=== PATIENT | female | born 1970 | race Caucasian/White ===

== ENCOUNTER 2018-04-07 07:58 | Outpatient (RCR) | payer OTHER, SELFPAY ==
--- NOTE | 2018-04-07 16:20 | PT.OIE ---
Current Diagnoses Stiffness of unspecified hip, not elsewhere classified (04/07/18) Stress incontinence (female) (male) (04/07/18) Provider Visit Care Team Role Provider Type Vahe Beckwith MD Primary Care Provider Non-Staff Specialty: Medical Address: [address] [place], [address] Email: Irasema Patel MD Attending Provider Physician Specialty: COMMERCIAL LITIGATION ASSOCIATE Address: [address] [place] [address], [id number] Email: [email or web address] Physical Therapy Initial Evaluation PT-OP-A Visit Information Start: 03/31/18 16:08 Freq: Status: Active Protocol: Document 04/07/18 08:16 LRN (Rec: 04/07/18 08:31 LRN [id number]) Out-Patient Physical Therapy Visit Information Visit Information Visit Type Initial Evaluation Visit Start Time 08:16 Visit Stop Time 09:07 Total Visit Minutes 51 Visit Number 1 Number of SPECIAL WEAPONS AND TACTICS OFFICER Visits 0 Evaluation Information Evaluation Date 04/07/18 Precautions Precautions Depression PT-OP-B Current Condition Start: 03/31/18 16:08 Freq: Status: Active Protocol: Document 04/07/18 08:16 LRN (Rec: 04/07/18 08:31 LRN [id number]) Current Condition History of Current Condition Onset Date 2 yrs ago. History of Current Condition Started exercising and noticed having to void immediately afterwards even though she went prior to exercise. Sometimes she doesn't make. States dancing sometimes leaks and at son's sports basketball game, jumping causes leakage. Prior Treatments and Tests Exam by MD Bladder scan showed bladder retention was not a problem. Treatment Goals Patient/Caregiver Goals Pt goal Prior Functional Status Baseline Function- ADL's Independent Baseline Function- Mobility Independent Baseline Function- Work/School Nurse Baseline Function- Recreation/Hobbies 2yrs ago was sedentary and not active Coughed and had to cross legs. Current Functional Impairments (Reported) Functional Limitations- Work/School Urinary leakage with Coughing. Functional Limitations- Recreation/ Urinary leakage with jumping, Hobbies dancing, standing in the presence of urgency. 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 Exercise 5-6 days a week at home. Beach body workout she started a couple years. PT-OP-C Subjective Start: 03/31/18 16:08 Freq: Status: Active Protocol: Document 04/07/18 08:16 LRN (Rec: 04/07/18 08:31 LRN [id number]) OP-PT Pain Assessment Comments Pain Comments Denies pain. PT-OP-I Pelvic Floor Start: 03/31/18 16:08 Freq: Status: Active Protocol: Document 04/07/18 08:16 LRN (Rec: 04/07/18 16:02 LRN [id number]) Pelvic Floor Assessment Urine Pelvic Floor Surgery No Urinary Symptoms Urge Sensation Prolapse Falling Out Feeling/Heavy Leakage Size Large Leakage Cause Cough Exercise Urge Voiding Frequency 4x/day Nocturia 1x/night Pelvic Clock Pelvic Clock 12-3 Atrophy Pelvic Clock 3-6 Atrophy Pelvic Clock 6-9 Atrophy Pelvic Clock 9-12 Atrophy Prolapse Cystocele Grade 3 Rectocele Grade 3 Perineal Descent Bearing Present Comments Pelvic Floor Comments Dry skin of PF. Redness and skin irritation of PF. PT-OP-K Range of Motion Start: 03/31/18 16:08 Freq: Status: Active Protocol: Document 04/07/18 08:16 LRN (Rec: 04/07/18 16:02 LRN [id number]) Lumbar Spine Range of Motion Lumbar Spine Active Degrees Testing Position Standing Flexion 70 Extension 25 Comments Lateral flexion decreased on the left by 10%. Hip Goniometric Range of Motion Hip Measured in Degrees Right Passive Testing Position Supine Left Passive Testing Position Supine PT-OP-M Strength Start: 03/31/18 16:08 Freq: Status: Active Protocol: Document 04/07/18 08:16 LRN (Rec: 04/07/18 16:02 LRN [id number]) Trunk Strength Trunk Manual Muscle Testing Core Stabilization Pt not able to maintain core stability with testing of hip flexion, bilaterally. Hip Strength Hip Manual Muscle Testing Right Flexion (L2) 5 Normal Left Flexion (L2) 5 Normal PT-OP-Q Treatments Start: 03/31/18 16:08 Freq: Status: Active Protocol: Document 04/07/18 08:16 LRN (Rec: 04/07/18 16:02 LRN [id number]) Self-Care/Home Management Treatment Education Patient Education Home Exercise Program Other Education Discussed and instructed pt in completing Bladder Diary. Activities Self-Care/Home Management Activities Pt issued and reviewed HEP: Kegel ex's. PT-OP-T Assessment and Plan Start: 03/31/18 16:08 Freq: Status: Active Protocol: Document 04/07/18 08:16 LRN (Rec: 04/07/18 08:31 LRN [id number]) Physical Therapy Assessment Rehab Potential Rehabilitation Potential Good Evaluation Complexity Number of Personal Factors/Comorbidities 1-2 Number of Body Systems Impaired 3 Clinical Presentation at Evaluation Evolving Impairments Impairments Posture ROM Strength Other Impairments Urinary incontinence with stress and urge. Other Concerns Age Related Concerns Impact of condition on work. Barriers to Rehabilitation Nursing job, pelvic obliquity, history of depression. Goals Five Impairment Decreased PF endurance, able to hold 3 sec's before loss of strength. Telephony Engineer Goal (LTG) Pt will be able to hold a PF contraction of strength no less than 8.0 mV's for 10 sec' s prior to fatigue. LTG Duration 08/05/18 Four Impairment Urgency always bothers her and it is usually severe. Short Term Goal (STG) Pt will be educated in urge deference self care technique. STG Duration 06/05/18 Telephony Engineer Goal (LTG) Urgency will be a bother occasionally per PUF Questionnaire. LTG Duration 08/05/18 Three Impairment Urinary leakage with cough, exercise, jumping, dance. Short Term Goal (STG) Pt will be educated in a HEP of aggravator ex's to strengthen her PF. STG Duration 06/05/18 Telephony Engineer Goal (LTG) Pt will be able to dance & jump without urinary leakage if previously voided, and pt will be able to cough without urinary leakage. LTG Duration 08/05/18 Two Impairment Poor awareness of performing an isolated PF contraction and poor strength Short Term Goal (STG) Pt will be able to identify a PF contraction with use of a PF E-stim unit, and Pt will be educated in performing an isolated contraction. STG Duration 06/05/18 Telephony Engineer Goal (LTG) Pt will be able to perform an isolated PF contraction of strength no less than 8.0 mV's . LTG Duration 06/21/19 One Impairment Lacks self group home exercise program [facility] Goal (LTG) Pt will be independent in a self care HEP. LTG Duration 08/05/18 Assessment Summary Assessment Pt presents to therapy with stress and some indications of urge urinary incontinence. She has a visible cystocele and rectocele and has palpable weakness of her PF. She has asymmetry of her pelvis and mobility asymmetry of the hips with weakness of the core. She does not perform an isolated PF contraction, but uses her gluteal and abdominal muscles to facilitate a PF contraction. The pt will benefit from skilled physical therapy for postural corrections, PF/core/pelvic strengthening, mixed incontinence rehab and education in self care. Due to the pt's work schedule and scheduling difficulties, the pt is not able to return until 05/2018; therefore her rehabilitation duration is expected to be 8 weeks from her first visit in May. Physical Therapy Plan Frequency and Duration Frequency of Treatment 1x/Week Plan of Care Start Date 04/07/18 Plan of Care End Date 08/05/18 Therapeutic Interventions Therapeutic Interventions Home Exercise Program Joint Mobilizations Manual Therapy Patient/Caregiver Education Self-Care/Home Management Soft Tissue Mobilization Therapeutic Activities Therapeutic Exercises Modalities Cold Pack/Ice Massage Electric Stimulation Next Visit Focus/Plan Next Note Type Treatment Note Next Visit Plan Review Bladder Diary and Kegel ex. Assess hip ext ROM/ strength and recheck pelvic obliquity. EMG assessment of PF strength and start PF strengthening deep breathing. Self care re: fluid intake and current ex program. Rehab for mixed incontinence and bladder retraining (for full emptying), core & pelvic stabilization.
--- NOTE | 2018-08-28 14:47 | PT.OPDS ---
Current Diagnoses Stiffness of unspecified hip, not elsewhere classified (04/07/18) Stress incontinence (female) (male) (04/07/18) Provider Visit Care Team Role Provider Type Vahe Beckwith MD Primary Care Provider Non-Staff Specialty: Medical Address: [facility] [place], [address] Email: Irasema Patel MD Attending Provider Physician Specialty: SENIOR PHP SOFTWARE DEVELOPER Address: [address] [place] [address], [address] Email: [email or web address] Visit Number Visit Number 1 Discharge Summary PT-OP-B Current Condition Start: 03/31/18 16:08 Freq: Status: Active Protocol: Document 04/07/18 08:16 LRN (Rec: 04/07/18 08:31 LRN [id number]) Current Condition History of Current Condition Onset Date 2 yrs ago. History of Current Condition Started exercising and noticed having to void immediately afterwards even though she went prior to exercise. Sometimes she doesn't make. States dancing sometimes leaks and at son's sports basketball game, jumping causes leakage. Prior Treatments and Tests Exam by MD Bladder scan showed bladder retention was not a problem. Treatment Goals Patient/Caregiver Goals Pt goal Prior Functional Status Baseline Function- ADL's Independent Baseline Function- Mobility Independent Baseline Function- Work/School Nurse Baseline Function- Recreation/Hobbies 2yrs ago was sedentary and not active Coughed and had to cross legs. Current Functional Impairments (Reported) Functional Limitations- Work/School Urinary leakage with Coughing. Functional Limitations- Recreation/ Urinary leakage with jumping, Hobbies dancing, standing in the presence of urgency. 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 Exercise 5-6 days a week at home. Beach body workout she started a couple years. Physical Therapy Assessment Goals Five Impairment Decreased PF endurance, able to hold 3 sec's before loss of strength. Medical Terminologist Goal (LTG) Pt will be able to hold a PF contraction of strength no less than 8.0 mV's for 10 sec' s prior to fatigue. LTG Duration 08/05/18 Four Impairment Urgency always bothers her and it is usually severe. Short Term Goal (STG) Pt will be educated in urge deference self care technique. STG Duration 06/05/18 Medical Terminologist Goal (LTG) Urgency will be a bother occasionally per PUF Questionnaire. LTG Duration 08/05/18 Three Impairment Urinary leakage with cough, exercise, jumping, dance. Short Term Goal (STG) Pt will be educated in a HEP of aggravator ex's to strengthen her PF. STG Duration 06/05/18 Medical Terminologist Goal (LTG) Pt will be able to dance & jump without urinary leakage if previously voided, and pt will be able to cough without urinary leakage. LTG Duration 08/05/18 Two Impairment Poor awareness of performing an isolated PF contraction and poor strength Short Term Goal (STG) Pt will be able to identify a PF contraction with use of a PF E-stim unit, and Pt will be educated in performing an isolated contraction. STG Duration 06/05/18 Custodial Goal (LTG) Pt will be able to perform an isolated PF contraction of strength no less than 8.0 mV's . LTG Duration 08/05/18 One Impairment Lacks self nursing home exercise program Medical Terminologist Goal (LTG) Pt will be independent in a self care HEP. LTG Duration 08/05/18 Assessment Summary Assessment Pt was seen only for her initial evaluation and did not return for follow up care; therefore the pt is being discharged from therapy due to lack of attendance. Physical Therapy Plan Discharge Physical Therapy Discharge Reasons No Longer Attending PT Discharge Comments Pt seen only for her initial evaluation. Pt being discharged for lack of attendance.
== END 2018-09-01 14:21 | disposition home or self-care (01) ==
LOC: PHYS 07:58
PROVIDERS: PCP Family Medicine; Visit Provider Specialist
DX: N39.3 Stress incontinence (female) (male) (principal); M25.659 Stiffness of unspecified hip, not elsewhere classified
CPT/HCPCS: 97161; 97535

== ENCOUNTER 2021-07-22 13:45 | Outpatient (RCR) | payer OTHER, SELFPAY ==
--- NOTE | 2021-07-03 13:48 | PT.OIE ---
Current Diagnoses Other female genital prolapse (07/03/21) Visit Care Team Role Provider Type Vahe Beckwith MD Attending Provider Non-Staff Family Provider Primary Care Provider Referring Provider Specialty: Medical Address: [address] [place] [address], [id number] Email: Physical Therapy Initial Evaluation PT-OP-A Visit Information Start: 07/01/21 12:55 Freq: Status: Active Protocol: Document 07/03/21 08:15 AMB (Rec: 07/03/21 13:44 AMB [id number]) Out-Patient Physical Therapy Visit Information Visit Information Visit Type Initial Evaluation Visit Start Time 08:15 Visit Stop Time 09:00 Total Visit Minutes 45 Visit Number 1 PT-OP-B Current Condition Start: 07/01/21 12:55 Freq: Status: Active Protocol: Document 07/03/21 08:15 AMB (Rec: 07/03/21 13:44 AMB [id number]) Current Condition History of Current Condition Onset Date 10+ years Current Complaints stress urinary incontinence History of Current Condition Saray returns to physical therapy for her 3rd PT eval. She has been evaluated twice before, but was unable to return due to covid shutdown/ loss of health insurance. In that times her symptoms have worsened, so that now the stress incontinence is with sit to stand, laughing, coughing, sneezing, running and jumping. She has not tried to do much pelvic floor strengthening yet. Personal Factors Other Personal Factors That May Effect Pt tends to drink a lot of Therapy/Recovery coffee/alcohol. Hx gastric sleeve in 2012 was previously more overweight, but has gained 20 pounds recently. PT-OP-I Pelvic Floor Start: 07/01/21 12:55 Freq: Status: Active Protocol: Document 07/03/21 08:15 AMB (Rec: 07/03/21 13:44 AMB [id number]) Pelvic Floor Assessment Urine Urinary Symptoms Urge Sensation Leakage Size Small Leakage Cause Cough,Exercise,Lifting,Sneeze, Urge Leaks Per Day 3/week Nocturia 2 SEMG (uV) Baseline 1 Quick Contraction 13 10 Second Contraction 6 Recruitment Pattern Fair Relaxation Good Holding Fair Stability of Hold Fair SEMG Stability of Rest Good Comments Pelvic Floor Comments Pt had poor levator lift at last visit, difficulty not holding her breath, focused on relaxing abdominals and breathing while christian pelvic floor PT-OP-T Assessment and Plan Start: 07/01/21 12:55 Freq: Status: Active Protocol: Document 07/03/21 08:15 AMB (Rec: 07/03/21 13:44 AMB [id number]) Physical Therapy Assessment Rehab Potential Rehabilitation Potential Good Evaluation Complexity Number of Personal Factors/Comorbidities 1-2 Number of Body Systems Impaired 1-2 Clinical Presentation at Evaluation Stable Impairments Impairments Functional Activities,Strength Goals Two Impairment Pelvic floor strength Short Term Goal (STG) Saray will contract her pelvic floor muscles while moving from sit to stand. STG Duration 4 weeks Mcfp Goal (LTG) Saray will contract her pelvic floor muscles for 10 seconds without holding her breath or compensating with her abdominals. LTG Duration 8 weeks One Impairment Continence Short Term Goal (STG) Saray will move from sit to stand without leaking urine. STG Duration 4 weeks Mcfp Goal (LTG) Saray will cough without leaking urine. LTG Duration 8 weeks Assessment Summary Assessment Saray attends physical therapy with progressively worsening stress urinary incontinence. She does have pelvic floor weakness, and has not really been working on strengthening. She will benefit from physical therapy for strengthening and behavior changes to reduce her stress urinary incontinence symptoms. Physical Therapy Plan Frequency and Duration Frequency of Treatment 1x/Week Duration of Treatment 8 weeks Plan of Care Start Date 07/03/21 Plan of Care End Date 09/01/21 Therapeutic Interventions Therapeutic Interventions Home Exercise Program,Manual Therapy,Neuromuscular Re- education,Self-Care/Home Management,Therapeutic Activities,Therapeutic Exercises Modalities Biofeedback,Cold Pack/Ice Massage,Electric Stimulation, Hot Packs Next Visit Focus/Plan Next Note Type Treatment Note
--- NOTE | 2021-07-03 13:48 | PT.OPPOC ---
Physical, Occupational & Speech Therapy At [facility] Current Diagnoses Other female genital prolapse (07/03/21) Visit Care Team Role Provider Type Vahe Beckwith MD Attending Provider Non-Staff Family Provider Primary Care Provider Referring Provider Specialty: Medical Address: [address] [place] [address], [address] Email: Plan Of Care PT-OP-T Assessment and Plan Start: 07/01/21 12:55 Freq: Status: Active Protocol: Document 07/03/21 08:15 AMB (Rec: 07/03/21 13:44 AMB [id number]) Physical Therapy Assessment Rehab Potential Rehabilitation Potential Good Evaluation Complexity Number of Personal Factors/Comorbidities 1-2 Number of Body Systems Impaired 1-2 Clinical Presentation at Evaluation Stable Impairments Impairments Functional Activities,Strength Goals Two Impairment Pelvic floor strength Short Term Goal (STG) Saray will contract her pelvic floor muscles while moving from sit to stand. STG Duration 4 weeks Custodial Goal (LTG) Saray will contract her pelvic floor muscles for 10 seconds without holding her breath or compensating with her abdominals. LTG Duration 8 weeks One Impairment Continence Short Term Goal (STG) Saray will move from sit to stand without leaking urine. STG Duration 4 weeks Custodial Goal (LTG) Saray will cough without leaking urine. LTG Duration 8 weeks Assessment Summary Assessment Saray attends physical therapy with progressively worsening stress urinary incontinence. She does have pelvic floor weakness, and has not really been working on strengthening. She will benefit from physical therapy for strengthening and behavior changes to reduce her stress urinary incontinence symptoms. Physical Therapy Plan Frequency and Duration Frequency of Treatment 1x/Week Duration of Treatment 8 weeks Plan of Care Start Date 07/03/21 Plan of Care End Date 09/01/21 Therapeutic Interventions Therapeutic Interventions Home Exercise Program,Manual Therapy,Neuromuscular Re- education,Self-Care/Home Management,Therapeutic Activities,Therapeutic Exercises Modalities Biofeedback,Cold Pack/Ice Massage,Electric Stimulation, Hot Packs Next Visit Focus/Plan Next Note Type Treatment Note Plan of Care Dates Plan of Care Start Date 07/03/21 Plan of Care End Date 09/01/21 Electronically Signed by: Aga Hollis, PT 07/03/21 1348 If you are in agreement with this Plan of Care, please return a signed and dated copy. I have reviewed this Plan of Care and certify that the skilled therapy services above are required to meet the patient?s needs. Physician Signature Date Printed Name and Credentials Clinical Instructor Signature Printed Name and Credentials
--- NOTE | 2021-07-18 14:43 | PT.OTN ---
Current Diagnoses Other female genital prolapse (07/18/21) Physical Therapy Treatment Note PT-OP-A Visit Information Start: 07/01/21 12:55 Freq: Status: Active Protocol: Document 07/18/21 13:43 AMB (Rec: 07/18/21 14:43 AMB [id number]) Out-Patient Physical Therapy Visit Information Visit Information Visit Type Treatment Note Visit Start Time 13:45 Visit Stop Time 14:30 Total Visit Minutes 45 Visit Number 2 PT-OP-B Current Condition Start: 07/01/21 12:55 Freq: Status: Active Protocol: Document 07/03/21 08:15 AMB (Rec: 07/03/21 13:44 AMB [id number]) Current Condition History of Current Condition Onset Date 10+ years Current Complaints stress urinary incontinence History of Current Condition Saray returns to physical therapy for her 3rd PT eval. She has been evaluated twice before, but was unable to return due to covid shutdown/ loss of health insurance. In that times her symptoms have worsened, so that now the stress incontinence is with sit to stand, laughing, coughing, sneezing, running and jumping. She has not tried to do much pelvic floor strengthening yet. Personal Factors Other Personal Factors That May Effect Pt tends to drink a lot of Therapy/Recovery coffee/alcohol. Hx gastric sleeve in 2013 was previously more overweight, but has gained 20 pounds recently. PT-OP-C Subjective Start: 07/01/21 12:55 Freq: Status: Active Protocol: Document 07/18/21 13:43 AMB (Rec: 07/18/21 14:43 AMB [id number]) OP-PT Subjective Patient Comments Patient Comments Saray is doing well, challenged by supine exercises- hard to find the time, standing or seated would be easier to fit into day. PT-OP-I Pelvic Floor Start: 07/01/21 12:55 Freq: Status: Active Protocol: Document 07/03/21 08:15 AMB (Rec: 07/03/21 13:44 AMB [id number]) Pelvic Floor Assessment Urine Urinary Symptoms Urge Sensation Leakage Size Small Leakage Cause Cough,Exercise,Lifting,Sneeze, Urge Leaks Per Day 3/week Nocturia 2 SEMG (uV) Baseline 1 Quick Contraction 13 10 Second Contraction 6 Recruitment Pattern Fair Relaxation Good Holding Fair Stability of Hold Fair SEMG Stability of Rest Good Comments Pelvic Floor Comments Pt had poor levator lift at last visit, difficulty not holding her breath, focused on relaxing abdominals and breathing while christian pelvic floor PT-OP-Q Treatments Start: 07/01/21 12:55 Freq: Status: Active Protocol: Document 07/18/21 13:43 AMB (Rec: 07/18/21 14:43 AMB [id number]) Therapeutic Exercises Supine Exercises roll in Reps/Minutes 2x10 Comments focus on breath Other Exercises quick flicks/long holds Other Exercise Name seated, quadruped, standing Comments with focus on levator lift, breathing Neuro Re-Education Treatment Other Activities sEMG Details hooklying Comments long holds, and with roll in PT-OP-T Assessment and Plan Start: 07/01/21 12:55 Freq: Status: Active Protocol: Document 07/18/21 13:43 AMB (Rec: 07/18/21 14:43 AMB [id number]) Physical Therapy Assessment Goals Two Impairment Pelvic floor strength Short Term Goal (STG) Saray will contract her pelvic floor muscles while moving from sit to stand. STG Duration 4 weeks Mcc Goal (LTG) Saray will contract her pelvic floor muscles for 10 seconds without holding her breath or compensating with her abdominals. LTG Duration 8 weeks One Impairment Continence Short Term Goal (STG) Saray will move from sit to stand without leaking urine. STG Duration 4 weeks Plaque Maker Goal (LTG) Saray will cough without leaking urine. LTG Duration 8 weeks Assessment Summary Assessment Pt felt better contraction with sensor inserted. Improved muscle activation today- avg 9. Better awareness of breath. Encouraged to contract pelvic floor when coughing/moving from sit to stand. Physical Therapy Plan Next Visit Focus/Plan Next Note Type Treatment Note Next Visit Plan Consider roll in roll out HEP, consider standing vs supine
--- NOTE | 2021-07-22 16:00 | PT.OTN ---
Current Diagnoses Other female genital prolapse (07/22/21) Physical Therapy Treatment Note PT-OP-A Visit Information Start: 07/01/21 12:55 Freq: Status: Active Protocol: Document 07/22/21 14:15 AMB (Rec: 07/22/21 14:30 AMB [id number]) Out-Patient Physical Therapy Visit Information Visit Information Visit Type Treatment Note Visit Start Time 13:45 Visit Stop Time 14:30 Total Visit Minutes 45 Visit Number 3 PT-OP-B Current Condition Start: 07/01/21 12:55 Freq: Status: Active Protocol: Document 07/03/21 08:15 AMB (Rec: 07/03/21 13:44 AMB [id number]) Current Condition History of Current Condition Onset Date 10+ years Current Complaints stress urinary incontinence History of Current Condition Saray returns to physical therapy for her 3rd PT eval. She has been evaluated twice before, but was unable to return due to covid shutdown/ loss of health insurance. In that times her symptoms have worsened, so that now the stress incontinence is with sit to stand, laughing, coughing, sneezing, running and jumping. She has not tried to do much pelvic floor strengthening yet. Personal Factors Other Personal Factors That May Effect Pt tends to drink a lot of Therapy/Recovery coffee/alcohol. Hx gastric sleeve in 2013 was previously more overweight, but has gained 20 pounds recently. PT-OP-C Subjective Start: 07/01/21 12:55 Freq: Status: Active Protocol: Document 07/18/21 13:43 AMB (Rec: 07/18/21 14:43 AMB [id number]) OP-PT Subjective Patient Comments Patient Comments Saray is doing well, challenged by supine exercises- hard to find the time, standing or seated would be easier to fit into day. PT-OP-I Pelvic Floor Start: 07/01/21 12:55 Freq: Status: Active Protocol: Document 07/03/21 08:15 AMB (Rec: 07/03/21 13:44 AMB [id number]) Pelvic Floor Assessment Urine Urinary Symptoms Urge Sensation Leakage Size Small Leakage Cause Cough,Exercise,Lifting,Sneeze, Urge Leaks Per Day 3/week Nocturia 2 SEMG (uV) Baseline 1 Quick Contraction 13 10 Second Contraction 6 Recruitment Pattern Fair Relaxation Good Holding Fair Stability of Hold Fair SEMG Stability of Rest Good Comments Pelvic Floor Comments Pt had poor levator lift at last visit, difficulty not holding her breath, focused on relaxing abdominals and breathing while christian pelvic floor PT-OP-Q Treatments Start: 07/01/21 12:55 Freq: Status: Active Protocol: Document 07/22/21 13:45 AMB (Rec: 07/24/21 12:55 AMB [id number]) Therapeutic Exercises Supine Exercises roll out Reps/Minutes 2x10 roll in Reps/Minutes 2x10 Comments focus on breath Standing Exercises 1 Standing Exercise Name sit to stand with pelvic floor Reps/Minutes 2x10 Other Exercises quick flicks/long holds Other Exercise Name seated, quadruped, standing Comments with focus on levator lift, breathing PT-OP-T Assessment and Plan Start: 07/01/21 12:55 Freq: Status: Active Protocol: Document 07/22/21 13:45 AMB (Rec: 07/24/21 12:55 AMB [id number]) Physical Therapy Assessment Goals Two Impairment Pelvic floor strength Short Term Goal (STG) Saray will contract her pelvic floor muscles while moving from sit to stand. STG Duration 4 weeks Mcc Goal (LTG) Saray will contract her pelvic floor muscles for 10 seconds without holding her breath or compensating with her abdominals. LTG Duration 8 weeks One Impairment Continence Short Term Goal (STG) Saray will move from sit to stand without leaking urine. STG Duration 4 weeks Mcc Goal (LTG) Saray will cough without leaking urine. LTG Duration 8 weeks Assessment Summary Assessment Reinforced that if the pt can feel a contraction and then feel a relaxation she is doing well. Try to add in movement as tolerated, although this i challenging. Physical Therapy Plan Next Visit Focus/Plan Next Note Type Treatment Note
--- NOTE | 2021-09-04 15:43 | PT.OPDS ---
Current Diagnoses Other female genital prolapse (07/22/21) Visit Care Team Role Provider Type Vahe Beckwith MD Attending Provider Non-Staff Family Provider Primary Care Provider Referring Provider Specialty: Medical Address: [address] [place] [address], [place], [address] Email: Visit Number Visit Number 3 Discharge Summary PT-OP-B Current Condition Start: 07/01/21 12:55 Freq: Status: Active Protocol: Document 07/03/21 08:15 AMB (Rec: 07/03/21 13:44 AMB [id number]) Current Condition History of Current Condition Onset Date 10+ years Current Complaints stress urinary incontinence History of Current Condition Saray returns to physical therapy for her 3rd PT eval. She has been evaluated twice before, but was unable to return due to covid shutdown/ loss of health insurance. In that times her symptoms have worsened, so that now the stress incontinence is with sit to stand, laughing, coughing, sneezing, running and jumping. She has not tried to do much pelvic floor strengthening yet. Personal Factors Other Personal Factors That May Effect Pt tends to drink a lot of Therapy/Recovery coffee/alcohol. Hx gastric sleeve in 2013 was previously more overweight, but has gained 20 pounds recently. PT-OP-C Subjective Start: 07/01/21 12:55 Freq: Status: Active Protocol: Document 07/18/21 13:43 AMB (Rec: 07/18/21 14:43 AMB [id number]) OP-PT Subjective Patient Comments Patient Comments Saray is doing well, challenged by supine exercises- hard to find the time, standing or seated would be easier to fit into day. PT-OP-I Pelvic Floor Start: 07/01/21 12:55 Freq: Status: Active Protocol: Document 07/03/21 08:15 AMB (Rec: 07/03/21 13:44 AMB [id number]) Pelvic Floor Assessment Urine Urinary Symptoms Urge Sensation Leakage Size Small Leakage Cause Cough,Exercise,Lifting,Sneeze, Urge Leaks Per Day 3/week Nocturia 2 SEMG (uV) Baseline 1 Quick Contraction 13 10 Second Contraction 6 Recruitment Pattern Fair Relaxation Good Holding Fair Stability of Hold Fair SEMG Stability of Rest Good Comments Pelvic Floor Comments Pt had poor levator lift at last visit, difficulty not holding her breath, focused on relaxing abdominals and breathing while christian pelvic floor PT-OP-T Assessment and Plan Start: 07/01/21 12:55 Freq: Status: Active Protocol: Document 09/04/21 15:42 AMB (Rec: 09/04/21 15:43 AMB [id number]) Physical Therapy Assessment Goals Two Impairment Pelvic floor strength Short Term Goal (STG) Saray will contract her pelvic floor muscles while moving from sit to stand. STG Duration 4 weeks Cell T[employer]per Goal (LTG) Saray will contract her pelvic floor muscles for 10 seconds without holding her breath or compensating with her abdominals. LTG Duration 8 weeks One Impairment Continence Short Term Goal (STG) Saray will move from sit to stand without leaking urine. STG Duration 4 weeks Cell Tender Helper Goal (LTG) Saray will cough without leaking urine. LTG Duration 8 weeks Assessment Summary Assessment Saray canceled her remaining appointments due to high gas prices. She completed 3 visits including her initial eval. She was challenged by christian her pelvic floor while stabilizing LE movement at her last visit and continued to have stress incontinence symptoms. Physical Therapy Plan Discharge Physical Therapy Discharge Reasons Patient Request
== END 2021-09-08 14:41 ==
LOC: PHYS 13:45
PROVIDERS: Family Provider Family Medicine; PCP Family Medicine; Referring Provider Family Medicine; Visit Provider Family Medicine
DX: N81.89 Other female genital prolapse (principal)
CPT/HCPCS: 97110; 97112; 97161